=== PATIENT | female | born 1940 | race Caucasian/White ===

== ENCOUNTER 2017-07-17 06:06 | Inpatient (IN) | payer MEDICARE, BC ==
[~2017-07-17 06:06] MED LIST: Acetaminophen TAB* 325 MG ONE; Acetaminophen TAB* 325 MG PO ONE; Buffered Lidocaine 0.9% SYRIN* 5 ML/SYR SYRINGE INTRADERM ONE; Buffered Lidocaine 0.9% SYRIN* 5 ML/SYR SYRINGE ONE; Dexamethasone IV* 4 MG/ML 1 ML (4 MG) IV SLOW PU ONE; Dexamethasone IV* 4 MG/ML 1 ML (4 MG) ONE; Metoclopramide IV* 5 MG/ML 2 ML VIAL IV SLOW PU ONE; Metoclopramide IV* 5 MG/ML 2 ML VIAL ONE; ceFOXitin 2 GM IVPREMIX* 2 GM/50 ML BAG ONE
[2017-07-17] MEDS ORDERED: Midazolam* 1 MG/ML 2 ML VIAL (2 MG) ONE (07:10)
[2017-07-17] MEDS ORDERED: fentaNYL* 50 MCG/ML 5 ML VIAL (250 MCG VIAL) ONE (07:10)
[2017-07-17] MEDS ORDERED: Ondansetron INJ* 2 MG/ML VIAL ONE (07:11)
[2017-07-17] MEDS ORDERED: Lidocaine 2% PF * 5 ML VIAL ONE (07:11)
[2017-07-17] MEDS ORDERED: Ketorolac INJ* 30 MG/ML 1 ML VIAL ONE (07:11)
[2017-07-17] MEDS ORDERED: Propofol* 10 MG/ML 20 ML BTL IV PUSH ONE (07:11)
[2017-07-17] MEDS ORDERED: Rocuronium* 10 MG/ML VIAL ONE (07:11)
[2017-07-17] MEDS ORDERED: Lidocaine 1% MPF wEPI 200,000* 30 ML SDV ONE (07:15)
[2017-07-17] MEDS ORDERED: fentaNYL* 50 MCG/ML 2 ML VIAL (100 MCG VIAL) IV PRN (08:15)
[2017-07-17] MEDS ORDERED: HYDROcodone/ACETAMIN 5-325 MG* 1 TAB PO PRN (08:15)
[2017-07-17] MEDS ORDERED: Ondansetron INJ* 2 MG/ML VIAL IV PRN ×2 (08:15→10:15)
[2017-07-17] MEDS ORDERED: Ibuprofen TAB* 600 MG PO PRN ×2 (08:15→10:15)
[2017-07-17] MEDS ORDERED: HYDROmorphone* 1 MG/ML 1 ML SYR IV PRN (08:15)
[2017-07-17] MEDS ORDERED: EPHEDrine (Pressors)* 50 MG/ML VIAL ONE (08:18)
[2017-07-17] MEDS ORDERED: Sugammadex * 200 MG/2 ML VIAL IV PUSH ONE (09:23)
[2017-07-17] MEDS ORDERED: Phenylephrine IV* 40 MCG/ML 10 ML SYRINGE ONE (09:32)
[2017-07-17] MEDS ORDERED: oxyCODONE/Acetamin 5/325 MG* TAB PO PRN (10:15)
[2017-07-17 16:26] LABS: Hematocrit 36 % (35-47); Hemoglobin 11.9 g/dl (12.0-16.0)
--- NOTE | 2017-07-18 01:52 | OP ---
AMENDED REPORT NOW INCLUDES DATE OF OPERATION - ESIGNED BEFORE ADJUSTMENT * DATE OF OPERATION: 07/17/17 - ROOM #334 DATE OF : 38 SURGEON: Kenney Mccarty MD ANESTHESIOLOGIST: Morenita Beauchamp MD ANESTHESIA: General endotracheal tube. PRE-OP DIAGNOSIS: Complete procidentia. POST-OP DIAGNOSIS: Complete procidentia. OPERATIVE PROCEDURE: Transvaginal hysterectomy and anterior and posterior colporrhaphy. FINDINGS: On exam under anesthesia, the cervix was exterior to the introitus; but, on further exam, the uterus was actually up well inside the pelvic cavity. COMPLICATIONS: None. ESTIMATED BLOOD LOSS: 150 cc. DESCRIPTION OF PROCEDURE: The patient identified, procedure identified as a transvaginal hysterectomy and anterior and posterior colporrhaphy. The patient was taken to the operating room, prepped and draped in the usual fashion in the dorsal lithotomy position under general anesthesia. Two single-tooth tenaculums were placed on the cervix. The cervix was injected with 1% with epi 1:200,000 in a circumferential pattern. The Bovie was used to make an incision in the same area. The anterior vesicoperitoneal fold was dissected cephalad and posterior cul-de-sac was dissected posteriorly, this continued with a very small atrophic cervix up approximately 3 to 4 cm. The paravaginal tissue was clamped, cut, and ligated a couple of times along the way. At this point, the cul-de-sac was identified and entered via a sharp dissection and uterosacrals were found to be quite high within the vagina. Uterine body was then identified and found to be also quite high. The anterior fundus was delivered through the cul-de-sac and the anterior bladder flap was identified in the vesicoperitoneal fold and this was incised using the Bovie. The LigaSure Impact was used to clamp and ligate the broad ligament and the vessels as well as the cardinal ligament and the uterosacral ligaments. These were all closed together along with the ovarian ligament and the fundus was delivered and using the vesicoperitoneal fold as a guide, the parauterine tissue and the ovarian ligament and uterosacral ligaments were all clamped, cut, and ligated. This was felt to be good support and good hemostasis was verified. A modified Root stitch was placed and attached to the highest part of the uterosacral ligament where it attached to the ovarian ligament. Attention was turned to the anterior portion of the procedure. The vaginal mucosa was dissected off the anterior vaginal area dissecting off the bladder to level of 1 cm below the urethra and dissected laterally up to about the ischial tuberosities. The endopelvic fascia was then plicated in the midline using 2-0 Biosyn. Good hemostasis verified using the Bovie. The vaginal mucosa was then reapproximated using 3-0 Polysorb in a running fashion and the vaginal cuff was closed using 0 Polysorb in a figure-of-8 fashion. The Root stitch was tied down and the anterior vagina really moved much further cephalad within the pelvic cavity. Attention was then turned to the perineal body. This was opened in a V fashion. The scar was then dissected laterally. The vaginal mucosa was dissected off the attenuated rectovaginal septum up to the level just below the Root stitch. Endopelvic fascia was identified and plicated in the midline using again 2- 0 Biosyn. This was taken down to the perineal body. The perineal body was then reapproximated using 2-0 Biosyn in a simple fashion and the vaginal mucosa was then closed using 3-0 Polysorb in a running fashion and the skin was closed using 3-0 Polysorb in a simple fashion. Good hemostasis was verified. A packing was placed within the vaginal cavity. A Duncan had been placed with clear urine and the patient was returned to recovery room in stable condition. All sponge and instrument counts were correct. [id number]/[id number] #: [id number] ALEJANDRA
[2017-07-18] MEDS ORDERED: Docusate CAP* 100 MG PO PRN (09:34)
[2017-07-18 13:39] VITALS: BP 162/74
== END 2017-07-18 15:20 | disposition home or self-care (01) | DRG 743 ==
LOC: AA 06:06 → EDSTATUS 07:45 → SSU 11:27
PROVIDERS: ADMIT Obstetrics & Gynecology; ATTEND Obstetrics & Gynecology
PROC: 0JQC0ZZ Repair Pelvic Region Subcutaneous Tissue and Fascia, Open Approach (ICD-10-PCS; 2017-07-17)
PROC: 0UT97ZZ Resection of Uterus, Via Natural or Artificial Opening (ICD-10-PCS; principal; 2017-07-17 07:45)
PROC: 0UTC7ZZ Resection of Cervix, Via Natural or Artificial Opening (ICD-10-PCS; 2017-07-17 07:45)
DX: N81.3 Complete uterovaginal prolapse (principal); I10 Essential (primary) hypertension; K21.9 Gastro-esophageal reflux disease without esophagitis; M19.90 Unspecified osteoarthritis, unspecified site; M81.0 Age-related osteoporosis without current pathological fracture; Z88.8 Allergy status to other drugs, medicaments and biological substances; Z85.828 Personal history of other malignant neoplasm of skin; Z98.42 Cataract extraction status, left eye; Z81.1 Family history of alcohol abuse and dependence; Z81.8 Family history of other mental and behavioral disorders; Z80.8 Family history of malignant neoplasm of other organs or systems; Z88.2 Allergy status to sulfonamides; Z91.041 Radiographic dye allergy status; Z91.040 Latex allergy status; Z88.5 Allergy status to narcotic agent
CPT/HCPCS: 36415; 85014; 85018; 88305; 94760; A9270-GY; J0694; J1100; J1885; J2001; J2250; J2405; J2704; J2765; J3010

== ENCOUNTER 2019-02-11 17:37 | Emergency (ER) | payer MEDICARE, BC ==
[2019-02-11] MEDS ORDERED: Ibuprofen TAB* 600 MG PO ONE (19:13)
[2019-02-11] MEDS ORDERED: Amoxicillin/Clavulanate TAB* 875 MG PO ONE (19:29)
--- NOTE | 2019-02-11 19:34 | ED ---
Bite Injury/Animal - HPI Summary HPI Summary: Patient complains of dog bite to right hand at 5:30 PM today. Dog his neighbor' s dog, vaccinations up-to-date. Patient states dog poor skin on her hand but does not believe there are any punctures. Denies any other pain symptoms or injury. - History of Current Complaint Chief Complaint: EDAnimalBite Stated Complaint: DOG BITE ON RT HAND PER PT Time Seen by Provider: 02/11/19 17:46 Hx Obtained From: Patient Onset of Injury: Happened hours ago Type of Bite: Pet Has Animal Been Immunized?: Yes Severity Initially: Moderate Severity Currently: Moderate Pain Intensity: 6 Pain Scale Used: 0-10 Numeric Character: Abrasion/Laceration Associated Signs And Symptoms: Positive: Negative Animal Available for Observation: Yes Animal Control Notified: Yes - Allergies/Home Medications Allergies/Adverse Reactions: Allergies Allergy/AdvReac Type Severity Reaction Status Date / Time MS Aloe [Aloe] Allergy Intermediate Hives Verified 07/17/17 06:25 MS Iodinated Contrast Media Allergy Intermediate Rash Verified 07/17/17 06:25 [IV CONTRAST DYE] MS Sulfa Drugs [Sulfa Drugs] Allergy Unknown Hives Verified 07/17/17 06:25 MS Bacitracin Allergy Rash And Verified 07/17/17 06:25 [From Triple Antibiotic Itching W/Hydrocortisone] MS Hydrocortisone Allergy Rash And Verified 07/17/17 06:25 [From Triple Antibiotic Itching W/Hydrocortisone] MS Latex [Latex] Allergy Rash And Verified 07/17/17 06:25 Itching MS Neomycin Allergy Rash And Verified 07/17/17 06:25 [From Triple Antibiotic Itching W/Hydrocortisone] MS Polymyxin B Allergy Rash And Verified 07/17/17 06:25 [From Triple Antibiotic Itching W/Hydrocortisone] Home Medications: Home Medications Lactobacillus Acidophilus* [Culturelle*] 1 cap PO QAM 02/11/19 [History Confirmed 02/11/19] PMH/Surg Hx/FS Hx/Imm Hx Endocrine/Hematology History: Denies: Hx Diabetes, Hx Thyroid Disease Cardiovascular History: Reports: Hx Hypertension - not being treated Respiratory History: Denies: Hx Asthma, Hx Chronic Obstructive Pulmonary Disease (COPD) GI History: Reports: Hx Irritable Bowel Denies: Hx Ulcer History: Reports: Other Problems/Disorders - prolapsed uterus Musculoskeletal History: Reports: Hx Arthritis - osteoarthritis, Other Musculoskeletal History - osteoporosis Sensory History: Reports: Hx Cataracts - left eye Opthamlomology History: Reports: Hx Cataracts - left eye EENT History: Denies: Hx Deafness Neurological History: Denies: Hx Developmental Delay Psychiatric History: Denies: Hx Autism - Cancer History Cancer Type, Location and Year: 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, 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 - Surgical History Surgery Procedure, Year, and Place: skin ca removal Hx Anesthesia Reactions: No Infectious Disease History: No Infectious Disease History: Denies: Hx Hepatitis, Hx Human Immunodeficiency Virus (HIV), Traveled Outside the [place] in Last 30 Days - Social History Alcohol Use: Occasionally Alcohol Amount: 2-3 glasses wine per week, maybe 1 beer Substance Use Type: Reports: None Smoking Status (MU): Never Smoked Tobacco Review of Systems Constitutional: Negative Eyes: Negative ENT: Negative Cardiovascular: Negative Respiratory: Negative Gastrointestinal: Negative Genitourinary: Negative Musculoskeletal: Negative Skin: Other Neurological: Negative Psychological: Normal All Other Systems Reviewed And Are Negative: Yes Physical Exam - Summary Physical Exam Summary: No apparent puncture wounds or lacerations. A 9 cm x 9 cm area of degloving along medial surface of right hand proximal to right thumb and right second digit. Flexion and extension intact on all fingers of right hand. Pain with palpation of right wrist and right hand. No other wounds noted to right upper extremity. Triage Information Reviewed: Yes Vital Signs On Initial Exam: Initial Vitals Temp Pulse Resp BP Pulse Ox 97.6 F 91 20 198/95 97 02/11/19 17:38 02/11/19 17:38 02/11/19 17:38 02/11/19 17:38 02/11/19 17:38 Vital Signs Reviewed: Yes Appearance: Positive: Well-Appearing Skin: Positive: Warm Head/Face: Positive: Normal Head/Face Inspection Eyes: Positive: Normal Neck: Positive: Supple Respiratory/Lung Sounds: Positive: Clear to Auscultation Cardiovascular: Positive: Normal Abdomen Description: Positive: Nontender Musculoskeletal: Positive: Normal Neurological: Positive: Normal Psychiatric: Positive: Normal AVPU Assessment: Alert - Sada Coma Scale Best Eye Response: 4 - Spontaneous Best Motor Response: 6 - Obeys Commands Best Verbal Response: 5 - Oriented Coma Scale Total: 15 Diagnostics - Vital Signs Vital Signs Temp Pulse Resp BP Pulse Ox 02/11/19 17:38 97.6 F 91 20 198/95 97 - Laboratory Lab Statement: Any lab studies that have been ordered have been reviewed, and results considered in the medical decision making process. Bite Injury Course/Dx - Course Course Of Treatment: Patient complains of dog bite to right hand at 5:30 PM today. Dog his neighbor's dog, vaccinations up-to-date. Patient states dog poor skin on her hand but does not believe there are any punctures. Denies any other pain symptoms or injury. Physical exam:No apparent puncture wounds or lacerations. A 9 cm x 9 cm area of degloving along medial surface of right hand proximal to right thumb and right second digit. Flexion and extension intact at each individual joint on all fingers of right hand. Pain with palpation of right wrist and right hand. No other wounds noted to right upper extremity. Vital signs within normal limits. X-ray of right hand and right wrist negative for fracture. Wound clean and covered with Xeroform gauze and wrapped. Patient provided with [facility] wound care clinic information and advised to follow up. Patient and son both understand and approve the plan. Rx for Augmentin. Patient started here in the ED on Augmentin. Dog belongs to a neighbor and is vaccinated. - Diagnoses Provider Diagnosis: Dog bite Discharge - Sign-Out/Discharge Documenting (check all that apply): Patient Departure Patient Received Moderate/Deep Sedation with Procedure: No - Discharge Plan Condition: Stable Disposition: HOME Prescriptions: Amoxicillin/Clavulanate TAB* [Augmentin TAB 875*] 875 mg PO BID 7 Days #14 tab Patient Education Materials: Animal Bite (ED) Referrals: Ramos Carvalho MD [Primary Care Provider] - Singh Sauceda MD [Medical Doctor] - Additional Instructions: Take antibiotics as directed. Keep wound covered with gauze and protected with a wrap. Follow[facility]up with [facility] wound care clinic Dr Sauceda . Return to the ED for any new or worsening symptoms - Billing Disposition and Condition Condition: STABLE Disposition: Home
[2019-02-11 19:48] VITALS: BP 180/81
== END 2019-02-11 19:45 | disposition home or self-care (01) ==
LOC: ED 17:37
DX: S61.451A Open bite of right hand, initial encounter (principal); W54.0XXA Bitten by dog, initial encounter; Y92.9 Unspecified place or not applicable; Z88.2 Allergy status to sulfonamides
CPT/HCPCS: 99282; A9270-GY

== ENCOUNTER 2019-05-17 10:59 | Emergency (ER) | payer MEDICARE, BC ==
--- NOTE | 2019-05-17 12:02 | ED ---
Lower Extremity - HPI Summary HPI Summary: Patient is an 79-year-old female presenting to the ED with left ankle pain after twisting it yesterday. She states she has remained ambulatory, however with discomfort. She endorses swelling and ecchymosis. He denies any pain to the lower extremity otherwise. She's never injured this ankle before. Dorsiflexion and plantar flexion intact. She is endorsing pain worse with palpation and better with rest, elevation and ice. She has been taking ibuprofen with good relief of her symptoms. - History of Current Complaint Chief Complaint: EDExtremityLower Stated Complaint: LT ANKLE INJ FROM FALL PER PT Time Seen by Provider: 05/17/19 11:16 Hx Obtained From: Patient Mechanism Of Injury: Twisted Onset of Pain: Hours, Days Onset/Duration: Days Severity Initially: Moderate Severity Currently: Moderate Pain Intensity: 5 Pain Scale Used: 0-10 Numeric Timing: Constant Location: Is Discrete @ - left ankle swelling and pain Character Of Pain: Aching Associated Signs And Symptoms: Positive: Swelling, Bruising. Negative: Redness Aggravating Factor(s): Standing, Ambulation Alleviating Factor(s): Rest Able to Bear Weight: No - Risk Factors Gout Risk Factors: Negative DVT Risk Factors: Negative Septic Arthritis Risk Factor: Negative - Allergies/Home Medications Allergies/Adverse Reactions: Allergies Allergy/AdvReac Type Severity Reaction Status Date / Time aloe Allergy Hives Verified 05/17/19 11:08 Iodinated Contrast- Oral and Allergy Rash Verified 05/17/19 11:08 IV Dye latex Allergy Rash And Verified 05/17/19 11:08 Itching neomycin Allergy Rash And Verified 05/17/19 11:08 Itching polymyxin B Allergy Rash And Verified 05/17/19 11:08 Itching Sulfa (Sulfonamide Allergy Hives Verified 05/17/19 11:08 Antibiotics) PMH/Surg Hx/FS Hx/Imm Hx Previously Healthy: Yes Endocrine/Hematology History: Denies: Hx Diabetes, Hx Thyroid Disease Cardiovascular History: Reports: Hx Hypertension - not being treated Respiratory History: Denies: Hx Asthma, Hx Chronic Obstructive Pulmonary Disease (COPD) GI History: Reports: Hx Irritable Bowel Denies: Hx Ulcer History: Reports: Other Problems/Disorders - prolapsed uterus Musculoskeletal History: Reports: Hx Arthritis - osteoarthritis, Other Musculoskeletal History - osteoporosis Sensory History: Reports: Hx Cataracts - left eye Denies: Hx Deafness Opthamlomology History: Reports: Hx Cataracts - left eye Neurological History: Denies: Hx Developmental Delay Psychiatric History: Denies: Hx Autism - Cancer History Cancer Type, Location and Year: 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, 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 - Surgical History Surgery Procedure, Year, and Place: skin ca removal Hx Anesthesia Reactions: No - Immunization History Hx Pertussis Vaccination: No Immunizations Up to Date: Yes Infectious Disease History: No Infectious Disease History: Denies: Hx Hepatitis, Hx Human Immunodeficiency Virus (HIV), Traveled Outside the [place] in Last 30 Days - Social History Occupation: Unemployed Lives: With Family Alcohol Use: Daily Alcohol Amount: 2-3 glasses wine per week, maybe 1 beer Hx Substance Use: No Substance Use Type: Reports: None Hx Tobacco Use: No Smoking Status (MU): Never Smoked Tobacco Review of Systems Constitutional: Negative Negative: Fever, Chills, Fatigue, Skin Diaphoresis Negative: Palpitations, Chest Pain Negative: Shortness Of Breath, Cough Genitourinary: Negative Positive: no symptoms reported, see HPI Positive: Arthralgia - left sided ankle pain and swelling. Negative: Myalgia Neurological: Negative All Other Systems Reviewed And Are Negative: Yes Physical Exam Triage Information Reviewed: Yes Vital Signs On Initial Exam: Initial Vitals Temp Pulse Resp BP Pulse Ox 98.4 F 95 16 184/99 98 05/17/19 11:03 05/17/19 11:03 05/17/19 11:03 05/17/19 11:03 05/17/19 11:03 Vital Signs Reviewed: Yes Appearance: Positive: Well-Appearing, No Pain Distress Skin: Positive: Warm, Skin Color Reflects Adequate Perfusion Head/Face: Positive: Normal Head/Face Inspection Eyes: Positive: EOMI, Conjunctiva Clear Neck: Positive: Supple, No Lymphadenopathy Respiratory/Lung Sounds: Positive: Clear to Auscultation, Breath Sounds Present Cardiovascular: Positive: RRR, Pulses are Symmetrical in both Upper and Lower Extremities Musculoskeletal: Positive: Strength/ROM Intact, Pain @ - left ankle - lateral Neurological: Positive: Speech Normal Psychiatric: Positive: Affect/Mood Appropriate AVPU Assessment: Alert Diagnostics - Vital Signs Vital Signs Temp Pulse Resp BP Pulse Ox 05/17/19 11:03 98.4 F 95 16 184/99 98 - Laboratory Lab Statement: Any lab studies that have been ordered have been reviewed, and results considered in the medical decision making process. Lower Extremity Course/Dx - Course Course Of Treatment: Patient is evaluated for left-sided ankle pain. X-ray obtained which is negative for any acute fracture. Plantar flexion and dorsiflexion intact. There is significant swelling and ecchymosis to the lateral side of the ankle. She is endorsing pain with palpation, better with ice, elevation and rest. She is encouraged ibuprofen 6 her milligrams 3 times daily, ice, elevation above the heart and the area was Thuan wrapped prior to discharge. She is okay with this plan and denies any concerns or complaints at this time. - Diagnoses Differential Diagnosis/HQI/PQRI: Positive: Sprain, Strain Provider Diagnoses: Ankle sprain Discharge - Sign-Out/Discharge Documenting (check all that apply): Patient Departure Patient Received Moderate/Deep Sedation with Procedure: No - Discharge Plan Condition: Stable Disposition: HOME Patient Education Materials: Ankle Sprain (ED) Referrals: Ramos Carvalho MD [Primary Care Provider] - Additional Instructions: Ibuprofen 600mg three times daily Ice - a few times per day Elevation above the heart Keep the area thuan wrapped if walking around - otherwise, may leave as is - Billing Disposition and Condition Condition: STABLE Disposition: Home
[2019-05-17 12:23] VITALS: BP 192/91
== END 2019-05-17 12:19 | disposition home or self-care (01) ==
LOC: ED 10:59
DX: S93.402A Sprain of unspecified ligament of left ankle, initial encounter (principal); X50.9XXA Other and unspecified overexertion or strenuous movements or postures, initial encounter; I10 Essential (primary) hypertension; Z88.2 Allergy status to sulfonamides; Z88.1 Allergy status to other antibiotic agents; Z91.041 Radiographic dye allergy status; Z91.040 Latex allergy status; M85.872 Other specified disorders of bone density and structure, left ankle and foot
CPT/HCPCS: 99282